=== PATIENT | male | born 1995 | race Caucasian/White ===

== ENCOUNTER 2022-08-03 14:42 | Emergency (ER) | payer MEDICAID ==
[2022-08-03] MEDS ORDERED: Ondansetron 4 MG/2 ML SDV IVPUSH ONE (15:00)
[2022-08-03] MEDS ORDERED: Sodium Chloride 0.9% 10 ML Syringe FLUSH PRN (15:00)
[2022-08-03] MEDS ORDERED: Morphine 4 MG/ML VIAL IVPUSH ONE (15:25)
[2022-08-03] MEDS ORDERED: Sodium Chloride 0.9% 1,000 ML IV SCH (15:30)
[2022-08-03 16:07] LABS: ESTIMATED GFR 94 mL/min (>60)
[2022-08-03] MEDS ORDERED: Iopamidol 755 Mg/ML 75 ML Bottle IV ONE (16:13)
[2022-08-03 16:32] LABS: CORONAVIRUS COVID-19 NAA NEGATIVE (NEGATIVE)
[2022-08-03] MEDS ORDERED: Ketorolac 30 MG/ML SDV IVPUSH ONE (17:11)
== END 2022-08-03 17:45 | disposition home or self-care (01) ==
LOC: FB.ED 14:42
DX: R10.32 Left lower quadrant pain (principal); R10.12 Left upper quadrant pain; K59.00 Constipation, unspecified; Z88.0 Allergy status to penicillin; Z88.5 Allergy status to narcotic agent; Z88.2 Allergy status to sulfonamides; Z79.899 Other long term (current) drug therapy; Z20.822 Contact with and (suspected) exposure to COVID-19
CPT/HCPCS: 0240U; 36415; 74177; 80053; 82150; 83690; 85025; 96361; 96374; 96375; 99284; J2270; J2405; J3490; J7030; Q9967